=== PATIENT | female | born 1955 | race Caucasian/White ===

== ENCOUNTER 2020-01-23 19:32 | Emergency (ER) | payer MEDICARE, OTHER ==
[2020-01-23 19:58] LABS: #Eosinphils 0.3 thou/uL (0.0-0.7); #Lymphocytes 2.8 thou/uL (1.20-3.40); #Monocytes 1.4 thou/uL (0.11-0.59); #Neutrophils 6.5 thou/uL (1.40-6.50); %Basophils 0.1 % (0.0-1.0); %Eosinophils 2.6 % (0.0-10.0); %Lymphocytes 25.8 % (21.0-51.0); %Monocytes 12.4 % (0.0-10.0); %Neutrophils 59.1 % (42.0-75.0); Hemoglobin 14.3 g/dL (12.0-16.0); Mean Corpuscular Hemoglobin 30.2 pg (27.0-31.0); Mean Corpuscular Volume 91.7 fL (78.0-98.0); Mean Platelet Volume 9.1 fL (7.4-10.4); Platelet Count 285 thou/uL (130-400); RBC Distribution Width 12.2 % (11.5-14.5); Red Blood Cell (RBC) Count 4.72 mill/uL (4.20-5.40)
--- NOTE | 2020-01-23 20:13 | RAD ---
FRONTAL RADIOGRAPH CHEST: Date: 01-23-2020 Comparison: None History: Chest pain FINDINGS: Cardiac silhouette appears enlarged. No pneumothorax, pleural fluid, focal consolidation or alveolar edema. There is degenerative change of the left shoulder. There is a nonspecific subtle density lateral to the left heart border which could represent a left b asilar pulmonary nodule or could be related to overlapping osseous structures. Recommend follow up PA and lateral imaging of the chest. IMPRESSION: Questionable nodular opacity in the left base. Prominent cardiac silhouette with no focal consolidati on or alveolar edema. Nonemergent follow up PA and lateral imaging of the chest advised. Code T
[2020-01-23 20:16] LABS: ALT (SGPT) 15 U/L (8-55); AST (SGOT) 17 U/L (5-34); Albumin 4.7 g/dL (3.4-4.8); Alkaline Phosphatase 86 U/L (40-110); Anion Gap 15 mmol/L (10-20); BUN (Urea Nitrogen) 17 mg/dL (9.8-20.1); Bilirubin, Total 0.8 mg/dL (0.2-1.2); CK (CPK) 392 U/L (29-168); Calc. Creatinine Clearance 0 mL/min (70-130); Calcium 9.7 mg/dL (7.8-10.44); Carbon Dioxide 24 mmol/L (23-31); Chloride 104 mmol/L (98-107); Estimated GFR-MDRD 47; Globulin 2.9 g/dL (2.4-3.5); Glucose 129 mg/dL (80-115); Protein, Total 7.6 g/dL (6.0-8.3); Sodium 140 mmol/L (136-145)
[2020-01-23 20:21] LABS: Potassium 2.9 mmol/L (3.5-5.1)
[2020-01-23] MEDS ORDERED: Potassium Chloride 20 MEQ TAB ONE (20:59)
[2020-01-23] MEDS ORDERED: Potassium Chloride 20 MEQ/100 ML PREMIX BAG ONE (20:59)
[2020-01-23] MEDS ORDERED: Ketorolac Tromethamine 30 MG/ML VIAL ONE (21:05)
[2020-01-23 23:30] LABS: Troponin I 0.011 ng/mL (< 0.028)
== END 2020-01-23 23:59 | disposition home or self-care (01) ==
LOC: ERS 19:32
DX: R07.9 Chest pain, unspecified (principal); E87.6 Hypokalemia; I10 Essential (primary) hypertension; F32.9 Major depressive disorder, single episode, unspecified; E66.9 Obesity, unspecified; E78.00 Pure hypercholesterolemia, unspecified; G47.419 Narcolepsy without cataplexy; Z79.899 Other long term (current) drug therapy
CPT/HCPCS: 71045; 80053; 82550; 83735; 84484; 85025; 93005; 96365; 96366; 96375; J1885; J3480

== ENCOUNTER 2020-02-07 05:53 | Outpatient (CLI) | payer MEDICARE, MEDICAID, OTHER ==
[2020-02-07 14:12] LABS: Prothrombin Time 13.4 sec (12.0-14.7)
[2020-02-07 14:29] LABS: Hemoglobin 12.8 g/dL (12.0-16.0); Mean Corpuscular HGB CONC 33.9 g/dL (32.0-36.0); Mean Corpuscular Hemoglobin 30.8 pg (27.0-31.0); Mean Corpuscular Volume 90.9 fL (78.0-98.0); Mean Platelet Volume 10.2 fL (7.4-10.4); Platelet Count 251 thou/uL (130-400); RBC Distribution Width 11.9 % (11.5-14.5); Red Blood Cell (RBC) Count 4.16 mill/uL (4.20-5.40); White Blood Cell (WBC) Count 5.8 thou/uL (4.8-10.8)
[2020-02-07 14:42] LABS: Anion Gap 13 mmol/L (10-20); BUN (Urea Nitrogen) 13 mg/dL (9.8-20.1); Calc. Creatinine Clearance 0 mL/min (70-130); Carbon Dioxide 21 mmol/L (23-31); Chloride 109 mmol/L (98-107); Estimated GFR-MDRD 67; Glucose 85 mg/dL (80-115); Potassium 4.2 mmol/L (3.5-5.1); Sodium 139 mmol/L (136-145)
[2020-02-08 13:47] LABS: SARS-CoV-2 MS2 Positive; SARS-CoV-2 N Gene Negative; SARS-CoV-2 S Gene Negative; SARS-CoV-2 orf1ab Negative
== END 2020-02-07 05:54 | disposition home or self-care (01) ==
LOC: LABBT 05:53
PROVIDERS: ATTEND Orthopaedic Surgery
DX: Z01.818 Encounter for other preprocedural examination (principal); Z11.59 Encounter for screening for other viral diseases; M17.12 Unilateral primary osteoarthritis, left knee
CPT/HCPCS: 80048; 85027; 85610; U0003; 87635

== ENCOUNTER 2020-02-07 09:15 | Observation (INO) | payer MEDICARE, MEDICAID, OTHER ==
[2020-02-04 09:33] VITALS: BMI 42.0
[2020-02-09] MEDS ORDERED: Fentanyl 100 MCG/2 ML VIAL ONE ×4 (11:45→15:07)
[2020-02-09] MEDS ORDERED: Midazolam HCl 2 mg/2 ml Vial ONE (11:50)
[2020-02-09] MEDS ORDERED: NEOMYCIN-POLYMYXIN-HC EAR SUSP 200 DROP/10 ML BOT ONE (11:53)
[2020-02-09] MEDS ORDERED: Neomycin-Polymyxin 1 ML AMP ONE (11:54)
[2020-02-09] MEDS ORDERED: Bupivacaine HCl 0.5%/Epinephrine 1:200,000/PF 30 ml Vial ONE (11:58)
[2020-02-09] MEDS ORDERED: Ropivacaine 0.2% HCl/PF (40 MG/20 ML VIAL) ONE (11:58)
[2020-02-09] MEDS ORDERED: Lidocaine 1% PF 5 ML VIAL ONE (11:58)
[2020-02-09] MEDS ORDERED: Dexamethasone 20 MG/5 ML VIAL ONE (11:58)
[2020-02-09] MEDS ORDERED: Ondansetron PF 4 MG/2 ML Vial ONE (11:58)
[2020-02-09] MEDS ORDERED: PROPOFOL 200 MG/20 ML VIAL ONE (11:58)
[2020-02-09] MEDS ORDERED: HYDROcodone/Acetaminophen 10/325 mg Tablet PO PRN ×3 (12:24→14:42)
[2020-02-09] MEDS ORDERED: traMADol HCl 50 MG TAB PO PRN (12:24)
[2020-02-09] MEDS ORDERED: Ondansetron PF 4 MG/2 ML Vial IVP PRN (12:24)
[2020-02-09] MEDS ORDERED: Ropivacaine HCl/PF 250 ML in Premix Bag 1 BAG NERVE BLCK SCH (12:24)
[2020-02-09] MEDS ORDERED: Promethazine HCl 25 MG/ML VIAL IM PRN (12:24)
[2020-02-09] MEDS ORDERED: Zolpidem Tartrate 5 MG TAB PO PRN (12:24)
[2020-02-09] MEDS ORDERED: hydrALAZINE 20 MG/ML VIAL ONE (14:36)
[2020-02-09] MEDS ORDERED: Acetaminophen 500 MG TAB PO PRN (14:42)
[2020-02-09] MEDS ORDERED: Bupivacaine PF 0.5% 30 ML VIAL ONE (15:01)
[2020-02-09] MEDS ORDERED: Ketorolac Tromethamine 30 MG/ML VIAL ONE (15:11)
--- NOTE | 2020-02-09 15:19 | RAD ---
EXAM: LEFT KNEE TWO VIEWS: 02/09/20 HISTORY: Status post total knee arthroplasty. FINDINGS/IMPRESSION: Recent total knee arthroplasty changes without periprosthetic facture, dislocation, or other acute pr ocess. POS: RRE
[2020-02-09] MEDS ORDERED: HYDROmorphone 2 MG/ML VIAL ONE (15:24)
--- NOTE | 2020-02-09 17:42 | PDOC.HOSPP ---
- Subjective Encounter Date: 02/09/20 Encounter Time: 17:42 Subjective: Patient seen and examined. No new complaints. Denies any chest pain or SOB. S/P Left TKR. Consulted for medical management. - Objective Vital Signs & Weight: Weight Weight 208 lb Hospitalist ROS - Review of Systems Constitutional: denies: fever, chills Respiratory: denies: cough, dry, shortness of breath, hemoptysis, SOB with excertion, pleuritic pain, sputum, wheezing, other Cardiovascular: denies: chest pain, palpitations, orthopnea, paroxysmal noc. dyspnea, edema, light headedness, other Gastrointestinal: denies: nausea, vomiting, abdominal pain, diarrhea, constipation, melena, hematochezia, other Neurological: denies: change in speech, confusion - Exam General Appearance: NAD, awake alert Eye: anicteric sclera ENT: normocephalic atraumatic Neck: supple, no JVD, no lymphadenopathy Heart: RRR, no murmur, no gallops, no rubs, normal peripheral pulses Respiratory: CTAB, no wheezes, no rales, no ronchi Gastrointestinal: soft, non-tender, no guarding, no rigidity Gastrointestinal - other findings: hypoactive BS all quads Neurological: no focal deficits Psychiatric: normal affect, A&O x 3 Hosp A/P - Plan Consulted for medical management 1. HTN, chronic, stable. 2. LARRY, chronic, stable, no CPAP. 3. HLD, chronic, stable. Continue PT per [facility]U protocol Continue ASA per [facility]U protocol Reviewed home medications Will restart antihypertensives at half dose Nerve block per anesthesia
[2020-02-09] MEDS ORDERED: Ketorolac Tromethamine 30 MG/ML VIAL IVP SCH (18:00)
[2020-02-09] MEDS: Sodium Chloride 0.9% 1,000 ML IV SCH (19:39)
[2020-02-09] MEDS: Ketorolac Tromethamine 30 MG/ML VIAL IVP SCH ×2 (19:40→23:20)
[2020-02-09] MEDS: HYDROcodone/Acetaminophen 10/325 mg Tablet PO PRN (19:56)
[2020-02-09] MEDS: CEFAZOLIN 2 GM in Premix Bag 1 BAG IVPB SCH (19:59)
[2020-02-09] MEDS: Citalopram 20 MG TAB PO SCH (20:03)
[2020-02-09] MEDS: rOPINIRole HCl 2 MG TAB PO SCH (20:03)
[2020-02-09] MEDS: Montelukast Sodium 10 mg Tablet PO SCH (20:03)
[2020-02-09] MEDS: Rosuvastatin 5 MG TAB PO SCH (20:03)
--- NOTE | 2020-02-09 20:13 | OP ---
DATE OF PROCEDURE: 02/09/2020 PREOPERATIVE DIAGNOSIS: Severe arthritis of left knee. POSTOPERATIVE DIAGNOSIS: Severe arthritis of left knee. PROCEDURE PERFORMED: Left total knee replacement. ANESTHESIA: General. DESCRIPTION OF PROCEDURE: The patient was given preoperative IV antibiotics. She was taken to the operating room, placed in the supine position. Satisfactory general anesthesia was performed. The left lower extremity was sterilely prepped and draped in usual fashion. After exsanguination, tourniquet of the left proximal thigh was raised to 300 mmHg. A longitudinal incision was made over the anterior aspect of the left knee. A medial parapatellar arthrotomy was performed. The patient had a synovial cyst present on the medial aspect of the knee joint, which was excised. There were loose cartilaginous bony bodies in the knee that were also removed. A partial synovectomy was performed. The patient was noted to have severe arthritis in the medial compartment of the knee with [id number] apposition and [id number] arthritis in the lateral compartment and patellofemoral joint. The medial and lateral menisci and the anterior cruciate ligament were excised using [employer] instrumentation. Initially, cut was made on the distal aspect of the femur, removing 12 mm of bone since the patient had a flexion contracture of the knee and it was cut at 5 degrees of valgus. The spurs were removed from around the distal aspect of the femur. The tibia was brought forward and using a tibial guide, cut was made on the proximal aspect of the tibia. It was measured as a size 5. The distal femur was then measured as a size 5, and the cutting jig was placed over the distal aspect of the femur, and the cuts were made on the anterior, posterior, and chamfer cuts on the femur. The femur was brought anteriorly, and there was a large bony loose body in the posterior medial compartment, which was removed. The proximal aspect of the tibia was prepared for the tibial stem, and the holes were made for the femoral stems. Trials were inserted, and the #5 tibial prosthesis had excellent coverage of the proximal tibia. The 10 mm tibial insert was trialed, and the femoral trial was inserted. This allowed for full extension of the knee with good stability. Trials were removed, and the cut was made on the undersurface of the patella. It was measured for 29 mm domed Tri-Peg patella. The holes were made for the pegs and while the methylmethacrylate with antibiotic was being mixed, the knee joint was copiously irrigated with a high-speed Pulsavac. The knee was thoroughly dried. Tibial component was cemented into place. Again, it was a finned size 5 nonporous base plate. A 10 mm tibial insert was locked into the base plate. The porous coated size 5 distal femur was impacted over the femur. Knee was placed into full extension, and a 29 mm Tri-Peg patella was cemented into place. Cement was allowed to harden. The knee joint again was copiously irrigated. Knee was placed through a range of motion, had good stability with good range of motion. The wound was then closed using #2 Vicryl for the retinacular tissue, 0 Vicryl for the fat and subcutaneous tissue, and the skin was closed with skin sharla. Sterile dressing was applied. Tourniquet was released. The patient was awakened, extubated, and transferred to recovery room in stable condition. ESTIMATED BLOOD LOSS: None. COMPLICATIONS: None. TOURNIQUET TIME: 70 minutes. Job ID: [id number]
[2020-02-09] MEDS: Fentanyl 100 MCG/2 ML VIAL IV PRN (21:03)
[2020-02-10] MEDS: Sodium Chloride 0.9% 1,000 ML IV SCH ×3 (00:12→11:52)
[2020-02-10] MEDS: CEFAZOLIN 2 GM in Premix Bag 1 BAG IVPB SCH (03:09)
[2020-02-10] MEDS: traMADol HCl 50 MG TAB PO PRN ×3 (03:12→18:00)
[2020-02-10] MEDS: Ketorolac Tromethamine 30 MG/ML VIAL IVP SCH ×3 (05:49→17:59)
[2020-02-10 05:51] LABS: #Monocytes 1.1 thou/uL (0.11-0.59); #Neutrophils 7.8 thou/uL (1.40-6.50); %Basophils 0.1 % (0.0-1.0); %Eosinophils 0.2 % (0.0-10.0); %Lymphocytes 9.8 % (21.0-51.0); %Monocytes 11.3 % (0.0-10.0); %Neutrophils 78.6 % (42.0-75.0); Hemoglobin 9.8 g/dL (12.0-16.0); Mean Corpuscular HGB CONC 34.3 g/dL (32.0-36.0); Mean Corpuscular Hemoglobin 31.3 pg (27.0-31.0); Mean Corpuscular Volume 91.1 fL (78.0-98.0); Mean Platelet Volume 9.8 fL (7.4-10.4); Platelet Count 206 thou/uL (130-400); RBC Distribution Width 11.6 % (11.5-14.5); Red Blood Cell (RBC) Count 3.12 mill/uL (4.20-5.40)
[2020-02-10 06:12] LABS: Anion Gap 8 mmol/L (10-20); BUN (Urea Nitrogen) 11 mg/dL (9.8-20.1); Calc. Creatinine Clearance 101 mL/min (70-130); Calcium 8.1 mg/dL (7.8-10.44); Carbon Dioxide 28 mmol/L (23-31); Chloride 106 mmol/L (98-107); Estimated GFR-MDRD 70; Glucose 135 mg/dL (80-115); Potassium 3.9 mmol/L (3.5-5.1); Sodium 138 mmol/L (136-145)
[2020-02-10] MEDS ORDERED: Prevnar 13-Val Conj/PF 0.5 ML SYRINGE IM ONE (09:00)
--- NOTE | 2020-02-10 10:21 | PRG ---
DATE OF SERVICE: 02/10/2020 SUBJECTIVE: Ms. William is 1 day status post left total knee replacement. The patient has good pain control. She states she is doing well. She has not gotten up with physical therapy yet. OBJECTIVE: VITAL SIGNS: Temperature 97.6, pulse 74, respiratory rate 14, O2 saturation 96% on room air, and blood pressure 137/71. SKIN: Dressing is intact and dry. EXTREMITIES: Left lower extremity is neurovascularly intact. LABORATORY DATA: This morning shows white count of 10, hemoglobin of 9.8, hematocrit of 28.5. Chemistries were normal except for slightly elevated glucose of 135. PLAN: The patient will work with physical and occupational therapy. She will progress as tolerated. She may weightbear as tolerated on the left lower extremity. Job ID: [id number]
--- NOTE | 2020-02-10 11:32 | PDOC.HOSPP ---
- Subjective Encounter Date: 02/10/20 Encounter Time: 13:45 Subjective: Patient seen and examined for med mngt. Pain controlled. No CP. No new complaints. No overnight events - Objective Vital Signs & Weight: Vital Signs (12 hours) Temp Pulse Resp BP Pulse Ox 02/10/20 07:08 97.6 F 74 14 137/71 96 02/10/20 03:19 97.8 F 74 18 147/80 H 97 02/10/20 02:33 98 02/09/20 23:37 98.6 F 68 17 138/87 97 Weight Weight 208 lb I&O: 02/09/20 02/10/20 02/11/20 06:59 06:59 06:59 Intake Total 1542 Output Total 425 Balance 1117 Result Diagrams: 02/10/20 05:30 02/10/20 05:30 EKG Reviewed by me: Yes (SR) Hospitalist ROS - Review of Systems Respiratory: denies: cough, dry, shortness of breath, hemoptysis, SOB with excertion, pleuritic pain, sputum, wheezing, other Cardiovascular: denies: chest pain, palpitations, orthopnea, paroxysmal noc. dyspnea, edema, light headedness, other - Medication Medications: Active Medications Generic Name Dose Route Start Last Admin Trade Name Freq PRN Reason Stop Dose Admin Hydrocodone Bitart/Acetaminophen 2 tab 02/09/20 14:42 02/09/20 19:56 [place] 10/325 PO 2 tab Q4H PRN Administration Severe Pain (7-10) Citalopram Hydrobromide 20 mg 02/09/20 21:00 02/09/20 20:03 Celexa PO 20 mg QPM CHARLIE Administration Fentanyl 50 mcg 02/09/20 12:25 02/09/20 21:03 Sublimaze IV 50 mcg Q1H PRN Administration BREAKTHROUGH PAIN Sodium Chloride 1,000 mls @ 100 mls/hr 02/09/20 14:45 02/10/20 08:46 Normal Saline 0.9% IV Not Given .Q10H CHARLIE Ketorolac Tromethamine 15 mg 02/09/20 18:00 02/10/20 05:49 Toradol IVP 02/10/20 18:01 15 mg Q6HR CHARLIE Administration Metoprolol Succinate 25 mg 02/09/20 21:00 02/09/20 20:03 Toprol Xl PO Not Given QPM CHARLIE Montelukast Sodium 10 mg 02/09/20 21:00 02/09/20 20:03 Singulair PO 10 mg QPM CHARLIE Administration Ropinirole HCl 2 mg 02/09/20 21:00 02/09/20 20:03 Requip PO 2 mg QPM CHARLIE Administration Rosuvastatin Calcium 5 mg 02/09/20 21:00 02/09/20 20:03 Crestor PO 5 mg QPM CHARLIE Administration Sodium Chloride 10 ml 02/09/20 21:00 02/10/20 08:47 Flush - Normal Saline IVF 10 ml Q12HR CHARLIE Administration Tramadol HCl 100 mg 02/09/20 12:24 02/10/20 10:32 Ultram PO 100 mg Q6H PRN Administration Moderate Pain 4-6 - Exam General Appearance: NAD Neck: supple, no JVD Heart: RRR, no gallops Respiratory: no wheezes, no ronchi Gastrointestinal: soft, non-tender, normal bowel sounds Extremities: no cyanosis, no clubbing Neurological: no new deficit Hosp A/P - Plan DVT proph w/SCDs HTN - uncontrolled HLD LARRY Morbid obesity BMI 42 Anxiety RLS CKD 2 PLAN: Increase Losartan to 100 mg daily (home dose) Increase Toprol XL to 50 mg daily (home dose) Add PRN HTN meds Cont Celexa Cont Statins PT/OT DVT prophylaxis
[2020-02-10] MEDS ORDERED: Polyethylene Glycol 3350 17 GM Packet PO PRN (11:35)
[2020-02-10] MEDS ORDERED: Senokot S 8.6-50 MG TAB PO SCH (11:45)
[2020-02-10] MEDS ORDERED: cloNIDine 0.1 MG TAB PO PRN (14:20)
[2020-02-10] MEDS ORDERED: hydrALAZINE 20 MG/ML VIAL SLOW IVP PRN (14:20)
[2020-02-10] MEDS ORDERED: Labetalol HCl 100 MG/20 ML VIAL SLOW IVP PRN (14:20)
[2020-02-10] MEDS ORDERED: Losartan 25 MG TAB PO SCH ×3 (14:30→21:00)
[2020-02-10] MEDS: HYDROcodone/Acetaminophen 10/325 mg Tablet PO PRN (14:42)
--- NOTE | 2020-02-10 17:46 | EKG ---
Test Reason : PREOP Blood Pressure : / mmHG Vent. Rate : 060 BPM Atrial Rate : 060 BPM P-R Int : 172 ms QRS Dur : 086 ms QT Int : 454 ms P-R-T Axes : 033 055 054 degrees QTc Int : 454 ms Normal sinus rhythm Normal ECG When compared with ECG of 23-JAN-2020 19:41, Vent. rate has decreased BY [address] Mert BAILEY ([id number]) on 02/10/2020 5:46:01 PM Referred By: AYDIN Confirmed By:DR. Mert BAILEY
[2020-02-10] MEDS ORDERED: Furosemide 40 MG TAB PO SCH (18:45)
[2020-02-10] MEDS: Citalopram 20 MG TAB PO SCH (21:04)
[2020-02-10] MEDS: Montelukast Sodium 10 mg Tablet PO SCH (21:04)
[2020-02-10] MEDS: rOPINIRole HCl 2 MG TAB PO SCH (21:04)
[2020-02-10] MEDS: Rosuvastatin 5 MG TAB PO SCH (21:04)
[2020-02-10] MEDS: Senokot S 8.6-50 MG TAB PO SCH (21:05)
[2020-02-10] MEDS: Fentanyl 100 MCG/2 ML VIAL IV PRN (21:35)
[2020-02-11] MEDS: traMADol HCl 50 MG TAB PO PRN ×2 (02:12→15:00)
[2020-02-11] MEDS: Fentanyl 100 MCG/2 ML VIAL IV PRN ×2 (02:53→07:14)
[2020-02-11] MEDS: HYDROcodone/Acetaminophen 10/325 mg Tablet PO PRN ×2 (05:21→17:35)
[2020-02-11 06:18] LABS: Anion Gap 13 mmol/L (10-20); BUN (Urea Nitrogen) 8 mg/dL (9.8-20.1); Calc. Creatinine Clearance 108 mL/min (70-130); Calcium 8.4 mg/dL (7.8-10.44); Carbon Dioxide 26 mmol/L (23-31); Chloride 102 mmol/L (98-107); Estimated GFR-MDRD 76; Glucose 105 mg/dL (80-115); Magnesium 1.6 mg/dL (1.6-2.6); Potassium 3.6 mmol/L (3.5-5.1); Sodium 137 mmol/L (136-145)
[2020-02-11] MEDS ORDERED: Losartan 25 MG TAB PO SCH (09:00)
[2020-02-11] MEDS: Senokot S 8.6-50 MG TAB PO SCH (09:14)
--- NOTE | 2020-02-11 16:21 | PDOC.HOSPP ---
- Subjective Encounter Date: 02/11/20 Encounter Time: 15:00 Subjective: Patient seen and examined for med mngt. c/o L knee pain. No CP/SOB. No other complaints. No overnight events - Objective Vital Signs & Weight: Vital Signs (12 hours) Temp Pulse Resp BP Pulse Ox 02/11/20 15:15 98.5 F 80 16 156/101 H 95 02/11/20 11:10 98.7 F 79 16 141/82 H 95 02/11/20 08:00 92 L 02/11/20 07:20 98.6 F 82 16 183/72 H 92 L Weight Weight 208 lb I&O: 02/10/20 02/11/20 02/12/20 06:59 06:59 06:59 Intake Total 1542 2480 Output Total 425 1850 Balance 1117 630 Result Diagrams: 02/10/20 05:30 02/11/20 05:19 Hospitalist ROS - Review of Systems Respiratory: denies: cough, dry, shortness of breath, hemoptysis, SOB with excertion, pleuritic pain, sputum, wheezing, other Cardiovascular: denies: chest pain, palpitations, orthopnea, paroxysmal noc. dyspnea, edema, light headedness, other Gastrointestinal: denies: nausea, vomiting, abdominal pain, diarrhea, constipation, melena, hematochezia, other - Medication Medications: Active Medications Generic Name Dose Route Start Last Admin Trade Name Freq PRN Reason Stop Dose Admin Hydrocodone Bitart/Acetaminophen 2 tab 02/09/20 14:42 02/11/20 05:21 [place] 10/325 PO 2 tab Q4H PRN Administration Severe Pain (7-10) Citalopram Hydrobromide 20 mg 02/09/20 21:00 02/10/20 21:04 Celexa PO 20 mg QPM CHARLIE Administration Fentanyl 50 mcg 02/09/20 12:25 02/11/20 07:14 Sublimaze IV 50 mcg Q1H PRN Administration BREAKTHROUGH PAIN Losartan Potassium 100 mg 02/11/20 09:00 02/11/20 09:14 Cozaar PO 100 mg DAILY CHARLIE Administration Montelukast Sodium 10 mg 02/09/20 21:00 02/10/20 21:04 Singulair PO 10 mg QPM CHARLIE Administration Ropinirole HCl 2 mg 02/09/20 21:00 02/10/20 21:04 Requip PO 2 mg QPM CHARLIE Administration Rosuvastatin Calcium 5 mg 02/09/20 21:00 02/10/20 21:04 Crestor PO 5 mg QPM CHARLIE Administration Senna/Docusate Sodium 2 tab 02/10/20 21:00 02/11/20 09:14 Senokot S PO 2 tab BID CHARLIE Administration Sodium Chloride 10 ml 02/09/20 21:00 02/11/20 09:15 Flush - Normal Saline IVF 10 ml Q12HR CHARLIE Administration Tramadol HCl 100 mg 02/09/20 12:24 02/11/20 15:00 Ultram PO 100 mg Q6H PRN Administration Moderate Pain 4-6 - Exam General Appearance: NAD Heart: RRR, no gallops Respiratory: no wheezes, no ronchi Gastrointestinal: non-tender, non-distended, normal bowel sounds Extremities: no cyanosis Neurological: no new deficit Hosp A/P - Plan DVT proph w/SCDs HTN - better controlled HLD LARRY Morbid obesity BMI 42 Anxiety RLS CKD 2 PLAN: Cont Losartan with Toprol XL Pt received another Toprol XL 25 mg dose this AM Cont PRN HTN meds Cont Celexa and Statins Cont PT/OT DVT prophylaxis
[2020-02-11 20:02] VITALS: BP 137/91; TEMP 98.7
--- NOTE | 2020-02-12 02:56 | DIS ---
DATE OF ADMISSION: 02/09/2020 DATE OF DISCHARGE: 02/11/2020 HISTORY OF PRESENT ILLNESS: Please see admission history and physical. HOSPITAL COURSE: The patient was worked up medically prior to admission and found to be stable for surgery. On the day of admission, she was given perioperative IV antibiotics and taken to the operating room, where she underwent a left total knee replacement. Postoperatively, the patient worked with Physical and Occupational Therapy and was making good progress, but she lives at home alone and would not be safe to be at home at this point. The patient remained afebrile. Vital signs remained stable. Her postoperative laboratory showed white count of 10, hemoglobin 9.8, and hematocrit 28.5. Her chemistries were normal. Her last vital signs show temperature of 98.7, respiratory rate 16, pulse 79, O2 saturation 95% on room air, and blood pressure 141/82. The left lower extremity remained neurovascularly intact. The dressing was changed. Incision was healing well. DISCHARGE DIAGNOSES: 1. Severe arthritis of the left knee, requiring total knee replacement. 2. Anemia secondary to expected blood loss from surgery. POST-DISCHARGE PLAN: The patient will need to go to either rehab or to a senior living facility to continue to work with Physical and Occupational Therapy, so that she can become more independent, therefore safe when she goes home. The patient will continue with her previous home medication, I wrote a prescription for tramadol 50 mg 1 to 2 every 6 hours as needed for pain, #60 with one refill. She will follow up in my office in 2 weeks. Job ID: [id number]
== END 2020-02-11 20:15 ==
LOC: INTOOBSV 02-09 10:07 → SURG A 02-09 10:07
PROVIDERS: ADMIT Orthopaedic Surgery; ATTEND Orthopaedic Surgery
PROC: 0SRC0JZ Replacement of Right Knee Joint with Synthetic Substitute, Open Approach (ICD-10-PCS; principal; 2020-02-09)
DX: M17.12 Unilateral primary osteoarthritis, left knee (principal); I12.9 Hypertensive chronic kidney disease with stage 1 through stage 4 chronic kidney disease, or unspecified chronic kidney disease; N18.2 Chronic kidney disease, stage 2 (mild); E78.00 Pure hypercholesterolemia, unspecified; E78.5 Hyperlipidemia, unspecified; E66.01 Morbid (severe) obesity due to excess calories; F41.9 Anxiety disorder, unspecified; G25.81 Restless legs syndrome; Z68.41 Body mass index [BMI] 40.0-44.9, adult; Z79.899 Other long term (current) drug therapy; Z01.818 Encounter for other preprocedural examination; Z11.59 Encounter for screening for other viral diseases
CPT/HCPCS: 27447; 73560; 80048 ×3; 83735; 85025; 85027; 85610; 93005; 96374; 96375; 96376 ×2; 97110 ×2; 97116 ×3; 97139 ×6; 97530; C1713; C1776 ×2; G0378 ×2; U0003; 36415; 87635; 93010; J0360; J0670; J0690; J1100; J1170; J1885; J2001; J2250; J2405; J2704; J2795; J3010; S0020

== ENCOUNTER 2020-03-11 18:04 | Emergency (ER) | payer MEDICARE, OTHER ==
[2020-03-11] MEDS ORDERED: Ketorolac Tromethamine 30 MG/ML VIAL ONE (18:26)
[2020-03-11 18:46] LABS: #Eosinphils 0.5 thou/uL (0.0-0.7); #Lymphocytes 2.6 thou/uL (1.20-3.40); #Monocytes 0.7 thou/uL (0.11-0.59); #Neutrophils 3.1 thou/uL (1.40-6.50); %Basophils 0.5 % (0.0-1.0); %Eosinophils 7.8 % (0.0-10.0); %Lymphocytes 36.6 % (21.0-51.0); %Monocytes 10.6 % (0.0-10.0); %Neutrophils 44.5 % (42.0-75.0); Hemoglobin 13.2 g/dL (12.0-16.0); Mean Corpuscular HGB CONC 33.7 g/dL (32.0-36.0); Mean Corpuscular Hemoglobin 30.6 pg (27.0-31.0); Mean Corpuscular Volume 90.9 fL (78.0-98.0); Mean Platelet Volume 8.9 fL (7.4-10.4); Platelet Count 342 thou/uL (130-400); RBC Distribution Width 12.9 % (11.5-14.5); Red Blood Cell (RBC) Count 4.31 mill/uL (4.20-5.40)
[2020-03-11 19:04] LABS: Anion Gap 14 mmol/L (10-20); BUN (Urea Nitrogen) 37 mg/dL (9.8-20.1); Calc. Creatinine Clearance 0 mL/min (70-130); Calcium 9.5 mg/dL (7.8-10.44); Carbon Dioxide 25 mmol/L (23-31); Chloride 101 mmol/L (98-107); Estimated GFR-MDRD 48; Glucose 142 mg/dL (80-115); Potassium 3.3 mmol/L (3.5-5.1); Sodium 137 mmol/L (136-145)
--- NOTE | 2020-03-11 19:34 | RAD ---
LEFT KNEE FOUR VIEWS: 03/11/30 HISTORY: Knee pain, recent knee replacement. COMPARISON: 02/09/20 examination. A total knee prosthesis is in satisfactory position. Do not see any signs for loosening or fracture. IMPRESSION: No acute findings. POS: SKYLAR
== END 2020-03-11 19:30 | disposition home or self-care (01) ==
LOC: ERS 18:04
DX: G89.18 Other acute postprocedural pain (principal); M25.462 Effusion, left knee; I10 Essential (primary) hypertension; E66.9 Obesity, unspecified; E78.00 Pure hypercholesterolemia, unspecified; F32.9 Major depressive disorder, single episode, unspecified; Z79.899 Other long term (current) drug therapy
CPT/HCPCS: 36600; 80048; 85025; 96372; J1885

== ENCOUNTER 2020-04-18 16:51 | Emergency (ER) | payer MEDICARE, OTHER ==
[2020-04-18] MEDS ORDERED: Fentanyl 100 MCG/2 ML VIAL ONE (17:48)
[2020-04-18 17:57] LABS: #Basophils 0.1 thou/uL (0.0-0.2); #Eosinphils 0.2 thou/uL (0.0-0.7); #Lymphocytes 1.8 thou/uL (1.20-3.40); #Monocytes 0.7 thou/uL (0.11-0.59); #Neutrophils 4.8 thou/uL (1.40-6.50); %Basophils 0.7 % (0.0-1.0); %Eosinophils 3.1 % (0.0-10.0); %Lymphocytes 23.7 % (21.0-51.0); %Monocytes 9.5 % (0.0-10.0); Hemoglobin 12.1 g/dL (12.0-16.0); Mean Corpuscular HGB CONC 32.9 g/dL (32.0-36.0); Mean Corpuscular Hemoglobin 29.3 pg (27.0-31.0); Mean Corpuscular Volume 88.9 fL (78.0-98.0); Mean Platelet Volume 9.6 fL (7.4-10.4); Platelet Count 242 thou/uL (130-400); RBC Distribution Width 12.8 % (11.5-14.5); Red Blood Cell (RBC) Count 4.12 mill/uL (4.20-5.40); White Blood Cell (WBC) Count 7.6 thou/uL (4.8-10.8)
[2020-04-18 18:14] LABS: ALT (SGPT) 10 U/L (8-55); AST (SGOT) 18 U/L (5-34); Albumin 4.3 g/dL (3.4-4.8); Alkaline Phosphatase 78 U/L (40-110); Anion Gap 16 mmol/L (10-20); BUN (Urea Nitrogen) 24 mg/dL (9.8-20.1); Bilirubin, Total 0.5 mg/dL (0.2-1.2); Calc. Creatinine Clearance 0 mL/min (70-130); Calcium 8.9 mg/dL (7.8-10.44); Carbon Dioxide 23 mmol/L (23-31); Chloride 106 mmol/L (98-107); Estimated GFR-MDRD 46; Globulin 2.3 g/dL (2.4-3.5); Glucose 96 mg/dL (80-115); Potassium 4.2 mmol/L (3.5-5.1); Protein, Total 6.6 g/dL (6.0-8.3); Sodium 141 mmol/L (136-145)
--- NOTE | 2020-04-18 18:31 | RAD ---
Exam:4 views left knee HISTORY: Pain. COMPARISON: 03/11/2020 FINDINGS: Uncomplicated left knee arthroplasty. No joint effusion. No perihardware lucency. No fractu re. IMPRESSION: Uncomplicated left knee arthroplasty.
--- NOTE | 2020-04-18 18:33 | RAD ---
Exam:4 views right knee HISTORY: Pain. COMPARISON: None FINDINGS: Uncomplicated right knee arthroplasty. No perihardware lucency. No joint effusion. No fract ure. IMPRESSION: Uncomplicated right knee arthroplasty.
--- NOTE | 2020-04-18 18:55 | ULT ---
Exam:Leftlower extremity venous ultrasound with Doppler HISTORY: Leftlower extremity swelling COMPARISON: None TECHNIQUE: Grayscale, color flow, Doppler imaging and spectral wave muscle performed LEFT lower extre mity venous system FINDINGS: There is compressibility, presence of flow and augmentation in the common femoral vein, femoral vein and popliteal vein. There is flow in the posterior tibial vein. There is flow in the greater saphenous vein and profunda femoral vein. Evaluation of the posterior tibial vein is limited due to a rtifact. IMPRESSION: No thrombus in the left lower extremity deep venous system. Evaluation of the posterior t ibial vein is limited due to artifact.
== END 2020-04-18 19:35 | disposition home or self-care (01) ==
LOC: ERS 16:51
DX: G89.18 Other acute postprocedural pain (principal); M25.562 Pain in left knee; M25.561 Pain in right knee; E78.5 Hyperlipidemia, unspecified; I10 Essential (primary) hypertension; E78.00 Pure hypercholesterolemia, unspecified; F32.9 Major depressive disorder, single episode, unspecified; Z79.899 Other long term (current) drug therapy
CPT/HCPCS: 36415; 80053; 83605; 85025; 85652; 86140; 87040; 96374; J3010

== ENCOUNTER 2020-10-15 10:50 | Emergency (ER) | payer MEDICARE, MEDICAID | END 2020-10-15 11:17 | disposition home or self-care (01) | LOC: ERS 10:50 | DX: H60.91 Unspecified otitis externa, right ear (principal); Z79.899 Other long term (current) drug therapy; E78.5 Hyperlipidemia, unspecified; I10 Essential (primary) hypertension; E78.00 Pure hypercholesterolemia, unspecified; E66.9 Obesity, unspecified | CPT/HCPCS: 99282 ==

== ENCOUNTER 2020-11-08 20:36 | Emergency (ER) | payer MEDICARE, MEDICAID ==
[2020-11-08] MEDS ORDERED: Proparacaine 0.5% Opth 15 ML BOT ONE (21:21)
[2020-11-08] MEDS ORDERED: Fluorescein Opthalmic Strip ONE (21:21)
== END 2020-11-08 21:41 | disposition home or self-care (01) ==
LOC: ERS 20:36
DX: H11.31 Conjunctival hemorrhage, right eye (principal); I10 Essential (primary) hypertension; E78.5 Hyperlipidemia, unspecified
CPT/HCPCS: 99282

== ENCOUNTER 2020-12-04 14:01 | Emergency (ER) | payer MEDICARE, MEDICAID ==
[2020-12-04] MEDS ORDERED: Ketorolac Tromethamine 30 MG/ML VIAL ONE (17:28)
== END 2020-12-04 17:00 | disposition home or self-care (01) ==
LOC: ERS 14:01
DX: R07.81 Pleurodynia (principal); E78.5 Hyperlipidemia, unspecified; I10 Essential (primary) hypertension; E78.00 Pure hypercholesterolemia, unspecified; E66.9 Obesity, unspecified; G47.30 Sleep apnea, unspecified
CPT/HCPCS: 71045; 96372; J1885

== ENCOUNTER 2021-04-27 13:35 | Emergency (ER) | payer MEDICARE, MEDICAID | END 2021-04-27 15:13 | disposition left against medical advice (07) | LOC: ERS 13:35 | DX: Z53.21 Procedure and treatment not carried out due to patient leaving prior to being seen by health care provider (principal) ==

== ENCOUNTER 2022-02-24 15:22 | Emergency (ER) | payer MEDICARE, MEDICAID ==
[2022-02-24 16:03] LABS: #Basophils 0.1 thou/uL (0.0-0.2); #Eosinphils 0.1 thou/uL (0.0-0.7); #Lymphocytes 2.3 thou/uL (1.20-3.40); #Monocytes 0.7 thou/uL (0.11-0.59); #Neutrophils 3.8 thou/uL (1.40-6.50); %Basophils 1.6 % (0.0-1.0); %Lymphocytes 33.1 % (21.0-51.0); %Monocytes 10.3 % (0.0-10.0); %Neutrophils 53.1 % (42.0-75.0); Hemoglobin 13.8 g/dL (12.0-16.0); Mean Corpuscular HGB CONC 33.2 g/dL (32.0-36.0); Mean Corpuscular Hemoglobin 32.1 pg (27.0-31.0); Mean Corpuscular Volume 96.7 fL (78.0-98.0); Mean Platelet Volume 9.4 fL (7.4-10.4); Platelet Count 230 thou/uL (130-400); Red Blood Cell (RBC) Count 4.31 mill/uL (4.20-5.40); White Blood Cell (WBC) Count 7.1 thou/uL (4.8-10.8)
[2022-02-24 16:24] LABS: ALT (SGPT) 20 U/L (8-55); AST (SGOT) 21 U/L (5-34); Albumin 4.1 g/dL (3.4-4.8); Alkaline Phosphatase 59 U/L (40-110); Anion Gap 13 mmol/L (10-20); BUN (Urea Nitrogen) 13 mg/dL (9.8-20.1); Bilirubin, Total 0.3 mg/dL (0.2-1.2); Calc. Creatinine Clearance 0 mL/min (70-130); Calcium 9.9 mg/dL (7.8-10.44); Carbon Dioxide 25 mmol/L (23-31); Chloride 106 mmol/L (98-107); Estimated GFR 57; Globulin 2.7 g/dL (2.4-3.5); Glucose 105 mg/dL (80-115); Lipase 67 U/L (8-78); Potassium 3.4 mmol/L (3.5-5.1); Protein, Total 6.8 g/dL (5.8-8.1); Sodium 141 mmol/L (136-145)
[2022-02-24] MEDS ORDERED: Morphine 4 MG/ML VIAL ONE ×2 (16:57→17:58)
[2022-02-24 18:04] LABS: Bilirubin Negative (Negative); Blood, Urine Negative (Negative); Calcium Oxalate Crystals 2+ HPF (None Seen); Clarity Turbid (Clear); Glucose, Urine (Dipstick) Normal (Negative); Ketone, Urine Trace mg/dL (Negative); Leukocyte 500 Leu/uL (Negative); Nitrite Negative (Negative); Protein, Urine (Dipstick) 50 mg/dL (Neg-Trace); Specific Gravity, Urine 1.046 (1.002-1.036); WBC/HPF 21-50 HPF (0-3)
[2022-02-24 18:11] LABS: RBC/HPF 0-3 HPF (0-3)
[2022-02-24 18:12] LABS: Bacteria/HPF 2+ HPF (None Seen)
[2022-02-24 19:05] LABS: SARS-CoV-2 NAA Rapid Test Not Detected (NotDetected)
== END 2022-02-24 20:02 | disposition home or self-care (01) ==
LOC: ERS 15:22
DX: N39.0 Urinary tract infection, site not specified (principal); I10 Essential (primary) hypertension; E78.5 Hyperlipidemia, unspecified; E78.00 Pure hypercholesterolemia, unspecified; E66.9 Obesity, unspecified; G47.30 Sleep apnea, unspecified; Z87.891 Personal history of nicotine dependence; Z20.822 Contact with and (suspected) exposure to COVID-19
CPT/HCPCS: 74176; 80053; 83690; 85025; 96372; 96374; 99284; U0002; 36415; 81003; 81015; J2270

== ENCOUNTER 2025-06-29 16:13 | Emergency (ER) | payer OTHER ==
[2025-06-29] MEDS ORDERED: Ketorolac Tromethamine 30 MG (1 mL) VIAL ONE (17:20)
== END 2025-06-29 17:30 | disposition home or self-care (01) ==
LOC: ERS 16:13
DX: G89.29 Other chronic pain (principal); M54.6 Pain in thoracic spine; I10 Essential (primary) hypertension; E78.00 Pure hypercholesterolemia, unspecified; E66.9 Obesity, unspecified; Z87.891 Personal history of nicotine dependence; Z79.899 Other long term (current) drug therapy; Z68.26 Body mass index [BMI] 26.0-26.9, adult
CPT/HCPCS: 96372; 99282; J1885